=== PATIENT | female | born 1995 | race Caucasian/White ===

== ENCOUNTER 2025-06-25 21:51 | Emergency (ER) | payer OTHER ==
[~2025-06-25] VITALS: Ht 152.4 cm; Wt 82.0 kg
[2025-06-25] MEDS ORDERED: AMOXICILLIN500 MG PO (22:08)
[2025-06-25] MEDS ORDERED: AMOXICILLIN 500 MG HOME.PACK PO ONE (22:15)
[2025-06-25] MEDS ORDERED: NEOMYCIN/POLYMYXIN/HYDROCORT 10 ML HOME.PACK OTIC ONE (22:15)
== END 2025-06-25 22:21 | disposition home or self-care (01) ==
LOC: ED 21:51
DX: H60.91 Unspecified otitis externa, right ear (principal); H66.91 Otitis media, unspecified, right ear; Z91.0110 Allergy to milk products, unspecified; Z91.013 Allergy to seafood
CPT/HCPCS: 99282